=== PATIENT | female | born 1935 | race Caucasian/White ===

== ENCOUNTER 2021-08-11 11:11 | Inpatient (IN) | payer MEDICARE, BC ==
[~2021-08-11] VITALS: Ht 149.9 cm; Wt 81.0 kg
[2021-08-11 11:37] LABS: BASOPHILS ABSOLUTE AUTO 0.06 K/mm3 (0.00-0.23); BASOPHILS PERCENT AUTO 0 % (0-2); EOSINOPHILS PERCENT AUTO 9 % (0-6); Hematocrit 34.6 % (33.0-51.0); Hemoglobin 10.7 g/dL (11.5-16.0); IMMATURE GRAN ABSOLUTE AUTO 0.07 K/mm3 (0.00-0.10); IMMATURE GRAN PERCENT AUTO 0 % (0-1); LYMPHOCYTES ABSOLUTE AUTO 2.87 K/mm3 (0.84-5.20); LYMPHOCYTES PERCENT AUTO 18 % (21-46); MONOCYTES ABSOLUTE AUTO 1.13 K/mm3 (0.16-1.47); MONOCYTES PERCENT AUTO 7 % (4-13); Mean Corpuscular HGB 27.4 pg (26.0-34.0); Mean Corpuscular HGB Conc 30.9 g/dL (31.5-36.5); Mean Corpuscular Volume 89 fL (80-100); Mean Platelet Volume 9.8 fL (9.1-12.4); NEUTROPHILS ABSOLUTE AUTO 10.69 K/mm3 (1.96-9.15); NEUTROPHILS PERCENT AUTO 66 % (41-73); Platelet Count 256 K/mm3 (150-400); RDW Coefficient Variation 17.1 % (11.7-14.2); RDW Standard Deviation 55.3 fL (35.1-46.3); White Blood Cell Count 16.22 K/mm3 (4.00-11.30)
[2021-08-11 11:57] LABS: Albumin, Blood 2.8 g/dL (3.4-5.0); Albumin/Globulin Ratio 0.7 (0.8-1.8); Bilirubin, Total 0.5 mg/dL (0.1-1.0); Bun/Creatinine Ratio 15.3 (12.0-20.0); Calcium, Blood 8.7 mg/dL (8.5-10.1); Creatinine, Blood 1.18 mg/dL (0.40-1.00); Globulin, Blood 3.9 g/dL (2.2-4.0); Potassium, Blood 3.9 mmol/L (3.5-5.5); Total Protein, Blood 6.7 g/dL (6.4-8.2)
[2021-08-11 12:30] LABS: Influenza A, PCR NEGATIVE (NEGATIVE); Influenza B, PCR NEGATIVE (NEGATIVE); Resp Syncytial Virus, PCR NEGATIVE (NEGATIVE); SARS-Cov-2 (COVID-19) PCR, MMC NEGATIVE (NEGATIVE)
[2021-08-11] MEDS ORDERED: FURO20 PO (18:23)
[2021-08-11] MEDS ORDERED: BENZ100A PO (18:24)
[2021-08-11] MEDS ORDERED: BUME1 PO (18:24)
--- NOTE | 2021-08-12 03:42 | NUR ---
CLOUD SUBJECT MATTER EXPERT SUMMARY HAS BEEN RESTING QUIETLY WITH OCCASIONAL INTERRUPTIONS. AWAKE AT TIMES WITH C/O HEADACHE. RECEIVED TYLENOL, MED EFFECTIVE. O2 PER NC AT 1L/MIN. SATS AND VITALS STABLE. NO C/O NAUSEA. CALL LIGHT IN REACH
[2021-08-12 05:12] LABS: Hematocrit 33.7 % (33.0-51.0); Hemoglobin 10.7 g/dL (11.5-16.0); Mean Corpuscular HGB 27.7 pg (26.0-34.0); Mean Corpuscular HGB Conc 31.8 g/dL (31.5-36.5); Mean Corpuscular Volume 87 fL (80-100); Mean Platelet Volume 10.2 fL (9.1-12.4); Platelet Count 242 K/mm3 (150-400); RDW Coefficient Variation 16.9 % (11.7-14.2); RDW Standard Deviation 53.7 fL (35.1-46.3); Red Blood Cell Count 3.86 M/mm3 (3.80-5.20); White Blood Cell Count 12.19 K/mm3 (4.00-11.30)
[2021-08-12 05:42] LABS: Bun/Creatinine Ratio 16.4 (12.0-20.0); Calcium, Blood 8.3 mg/dL (8.5-10.1); Creatinine, Blood 1.22 mg/dL (0.40-1.00); Potassium, Blood 3.8 mmol/L (3.5-5.5)
[2021-08-12] MEDS ORDERED: FERREX 150150 M1 PO (09:43)
[2021-08-12] MEDS ORDERED: VITAMIN D33000 UNIT PO (09:43)
[2021-08-12] MEDS ORDERED: Premarin0.3 MG PO (09:44)
[2021-08-12] MEDS ORDERED: AMLO5 PO (09:44)
[2021-08-12] MEDS ORDERED: Ventolin5 MG/1 ML INH (09:48)
[2021-08-12] MEDS ORDERED: ALBU90OI INH (09:49)
--- NOTE | 2021-08-12 14:57 | NUR ---
Spiritual care visit conducted. Patient is lying in bed and alert. Patient tells me about her medical history and then talks at length about the recent of her son (2yrs ago), her dtr (6 yrs ago) and then her spouse (14 yrs ago). She also shares her concerns about going home without oxygen support. While we are talking her other dtr arrives in the and explains that pt may d/c to her home today. I normalize pt's experience, and therapeutic listening, grief support and prayer. Pt responds well and shows signs of increased peace.
[2021-08-12] MEDS ORDERED: CLOP75 PO (15:15)
[2021-08-12] MEDS ORDERED: AUSTEDO12 MG PO (15:16)
[2021-08-12] MEDS ORDERED: GABA300 PO ×2 (15:18→15:19)
[2021-08-12] MEDS ORDERED: MONT10T PO (15:21)
[2021-08-12] MEDS ORDERED: EUTHYROX50 MCG PO (15:21)
[2021-08-12] MEDS ORDERED: MYRBETRIQ50 MG PO (15:22)
[2021-08-12] MEDS ORDERED: PANT40 PO (15:22)
[2021-08-12] MEDS ORDERED: POTA10T PO (15:23)
[2021-08-12] MEDS ORDERED: PRED1 PO (15:25)
[2021-08-12] MEDS ORDERED: ROSU10TA PO (15:26)
[2021-08-12] MEDS ORDERED: AZIT250 PO (17:16)
[2021-08-12] MEDS ORDERED: LACT PO (17:16)
[2021-08-12] MEDS ORDERED: CEPH500 PO (17:17)
--- NOTE | 2021-08-12 17:54 | NUR ---
11:15 ASSUMED CARE OF PT, RESTING QUIETLY IN BED, WATCHING TV. PT WANTING TO GO HOME. HOME MED LIST TO BE OBTAINED FROM PCP IN [place] [facility] AND HOME O2 EVAL TO BE DONE. JORDIN CALLED FOR HOME MED LIST. UPDATED IN PT'S CHART WHEN OBTAINED. HOME O2 EVAL DONE WITH PT AMBULATING IN [place] WITH RT. PT NOT NEEDING TO GO HOME WITH O2. DR RUGGIERO UPDATED ON PT'S MED LIST AND EVAL. DR RUGGIERO WANTING PT TO STAY ONE MORE DAY, BUT PT INSISTING ON GOING HOME TODAY. PT AMBULATED IN [place] AGAIN, DOING BETTER THE 2ND TIME, BUT STILL BECOMING SOB WHEN BACK TO AND TRYING TO TALK TOO MUCH. DR RUGGIERO TO TO EVALUATE PT AND TRIED TO ENCOURAGE PT TO STAY UNTIL TOMORROW. PT BECOMING UPSET AND TEARFUL. D/C ORDERS PLACED. [facility]. PT'S DAUGHTER HERE TO TAKE PT HOME AND WILL BE STAYING WITH PT WELL. PT DOES HAVE GOOD FAMILY SUPPORT AND LIVES WITH GRANDAUGHTER TOO. PT DENIED FURTHER NEEDS. ASSISTED OUT TO DAUGHTERS CAR VIA W/C., BELONGINGS WENT WITH PT AND DAUGHTER.
== END 2021-08-12 17:48 | disposition home or self-care (01) | DRG 871 ==
LOC: ER 11:11 → MEDS 13:46
PROVIDERS: Emergency Medicine; ADMIT Internal Medicine
DX: A41.9 Sepsis, unspecified organism (principal); J96.21 Acute and chronic respiratory failure with hypoxia; J18.9 Pneumonia, unspecified organism; J44.1 Chronic obstructive pulmonary disease with (acute) exacerbation; J44.0 Chronic obstructive pulmonary disease with (acute) lower respiratory infection; Z66 Do not resuscitate; Z20.822 Contact with and (suspected) exposure to COVID-19; G89.29 Other chronic pain; M54.9 Dorsalgia, unspecified; D72.829 Elevated white blood cell count, unspecified; N18.30 Chronic kidney disease, stage 3 unspecified; I50.9 Heart failure, unspecified; T38.0X5A Adverse effect of glucocorticoids and synthetic analogues, initial encounter; Z90.49 Acquired absence of other specified parts of digestive tract; Z90.710 Acquired absence of both cervix and uterus; Z98.890 Other specified postprocedural states; Z99.81 Dependence on supplemental oxygen; Z87.891 Personal history of nicotine dependence; Z88.6 Allergy status to analgesic agent; Z88.5 Allergy status to narcotic agent; Z91.09 Other allergy status, other than to drugs and biological substances; Z79.899 Other long term (current) drug therapy; W18.30XA Fall on same level, unspecified, initial encounter
CPT/HCPCS: 0241U; 36415; 70450; 71045; 72125; 80048; 80053; 83605; 83880; 84145; 84484; 85025; 85027; 87040; 93005; 93010; 93306; 94640; 94664; 94760; 94761; 96365; 96375; 99285-25; A9270; J0456; J0696; J1940; J7060

== ENCOUNTER → 2023-02-18 | Outpatient (CLI) | payer MEDICARE, BC ==
[~2023-02-18] MED LIST: ALBU90OI INH; AMLO5 PO; AMLODIPINE BES2.5 MG PO; AUSTEDO12 MG PO; AZIT250 PO; BENZ100A PO; BUME1 PO; CEPH500 PO; CLIMARA1 EACH TOP; CLOP75 PO; ELIQUIS2.5 M1 PO; EUTHYROX50 MCG PO; FERREX 150150 M1 PO; FURO20 PO; GABA300 PO; KLOR-CON 1010 ME9 PO; LACT PO; MONT10T PO; MYRBETRIQ50 MG PO; NEURONTIN300 MG PO; PANT40 PO; PANTOPRAZOLE SO40 M2 PO; PLAVIX75 MG PO; POTA10T PO; PRED1 PO; Prednisone10 MG PO; Premarin0.3 MG PO; ROPINIROLE HCL2 M1 PO; ROSU10TA; ROSU10TA PO; SYNTHROID50 MC1 PO; TRELEGY ELLIPT1 EAC1 INH; VITAMIN D33000 UNIT PO; Ventolin/Prove6.7 GM INH; Ventolin5 MG/1 ML INH
[2023-02-18 18:14] LABS: Albumin, Blood 3.1 g/dL (3.4-5.0); Albumin/Globulin Ratio 0.9 (0.8-1.8); Bilirubin, Total 0.3 mg/dL (0.1-1.0); Bun/Creatinine Ratio 20.3 (12.0-20.0); Calcium, Blood 8.9 mg/dL (8.5-10.1); Creatinine, Blood 1.48 mg/dL (0.40-1.00); Globulin, Blood 3.4 g/dL (2.2-4.0); Potassium, Blood 4.6 mmol/L (3.5-5.5); Total Protein, Blood 6.5 g/dL (6.4-8.2)
== END ==
LOC: LAB SHORT 16:50 → LAB 16:50
PROVIDERS: Family Medicine
DX: I50.812 Chronic right heart failure (principal)
CPT/HCPCS: 80053; 83880

== ENCOUNTER 2023-02-21 17:34 | Inpatient (IN) | payer MEDICARE, BC ==
[~2023-02-21] VITALS: Ht 162.6 cm; Wt 54.8 kg
[~2023-02-21 17:34] MED LIST changes: -AMLODIPINE BES2.5 MG PO; -CLIMARA1 EACH TOP; -ELIQUIS2.5 M1 PO; -KLOR-CON 1010 ME9 PO; -NEURONTIN300 MG PO; -PANTOPRAZOLE SO40 M2 PO; -PLAVIX75 MG PO; -Prednisone10 MG PO; -ROPINIROLE HCL2 M1 PO; -ROSU10TA; -SYNTHROID50 MC1 PO; -TRELEGY ELLIPT1 EAC1 INH; -Ventolin/Prove6.7 GM INH
[2023-02-21 18:51] LABS: Albumin, Blood 3.2 g/dL (3.4-5.0); Albumin/Globulin Ratio 0.9 (0.8-1.8); Bilirubin, Total 0.5 mg/dL (0.1-1.0); Bun/Creatinine Ratio 20.4 (12.0-20.0); Calcium, Blood 8.8 mg/dL (8.5-10.1); Creatinine, Blood 1.47 mg/dL (0.40-1.00); Globulin, Blood 3.5 g/dL (2.2-4.0); Potassium, Blood 4.5 mmol/L (3.5-5.5); Total Protein, Blood 6.7 g/dL (6.4-8.2)
[2023-02-21 19:02] LABS: BASOPHILS ABSOLUTE AUTO 0.04 K/mm3 (0.00-0.23); BASOPHILS PERCENT AUTO 0 % (0-2); EOSINOPHILS PERCENT AUTO 0 % (0-6); Hematocrit 40.8 % (33.0-51.0); IMMATURE GRAN ABSOLUTE AUTO 0.15 K/mm3 (0.00-0.10); IMMATURE GRAN PERCENT AUTO 1 % (0-1); LYMPHOCYTES ABSOLUTE AUTO 1.21 K/mm3 (0.84-5.20); LYMPHOCYTES PERCENT AUTO 9 % (21-46); MONOCYTES ABSOLUTE AUTO 0.35 K/mm3 (0.16-1.47); MONOCYTES PERCENT AUTO 2 % (4-13); Mean Corpuscular HGB Conc 31.9 g/dL (31.5-36.5); Mean Corpuscular Volume 97 fL (80-100); Mean Platelet Volume 9.8 fL (9.1-12.4); NEUTROPHILS ABSOLUTE AUTO 12.54 K/mm3 (1.96-9.15); NEUTROPHILS PERCENT AUTO 88 % (41-73); NRBC ABSOLUTE 0.02 K/mm3 (0.00-0.02); NRBC Auto 0.1 /100 WBC (0.0-0.2); Platelet Count 211 K/mm3 (150-400); RDW Coefficient Variation 15.3 % (11.7-14.2); RDW Standard Deviation 54.5 fL (35.1-46.3); White Blood Cell Count 14.29 K/mm3 (4.00-11.30)
[2023-02-21 19:04] LABS: Influenza A, PCR NEGATIVE (NEGATIVE); Influenza B, PCR NEGATIVE (NEGATIVE); Resp Syncytial Virus, PCR NEGATIVE (NEGATIVE); SARS-Cov-2 (COVID-19) PCR, MMC NEGATIVE (NEGATIVE)
[2023-02-21] MEDS ORDERED: AMLODIPINE BES2.5 MG PO (19:20)
[2023-02-21] MEDS ORDERED: Prednisone10 MG PO (19:21)
[2023-02-21] MEDS ORDERED: ROPINIROLE HCL2 M1 PO (19:21)
[2023-02-21] MEDS ORDERED: ELIQUIS2.5 M1 PO (19:22)
[2023-02-21] MEDS ORDERED: MONT10T PO (22:12)
[2023-02-22 05:30] LABS: Bun/Creatinine Ratio 19.4 (12.0-20.0); Calcium, Blood 7.9 mg/dL (8.5-10.1); Creatinine, Blood 1.65 mg/dL (0.40-1.00); Potassium, Blood 4.2 mmol/L (3.5-5.5)
[2023-02-22 09:07] VITALS: BP 146/78
[2023-02-22] MEDS ORDERED: FURO20 PO (09:32)
[2023-02-22] MEDS ORDERED: SYNTHROID50 MC1 PO (09:32)
[2023-02-22] MEDS ORDERED: TRELEGY ELLIPT1 EAC1 INH (09:32)
[2023-02-22] MEDS ORDERED: Ventolin/Prove6.7 GM INH (09:33)
[2023-02-22] MEDS ORDERED: NEURONTIN300 MG PO (09:33)
[2023-02-22] MEDS ORDERED: PANTOPRAZOLE SO40 M2 PO (09:33)
[2023-02-22] MEDS ORDERED: KLOR-CON 1010 ME9 PO (09:34)
[2023-02-22] MEDS ORDERED: PLAVIX75 MG PO (09:34)
[2023-02-22] MEDS ORDERED: CLIMARA1 EACH TOP (09:34)
[2023-02-22] MEDS ORDERED: MONT10T PO (09:34)
[2023-02-22 12:13] VITALS: BP 154/83
[2023-02-22 13:07] LABS: Base Excess Venous 4.1 mmol/L; Bicarbonate Venous 27.7 mmol/L (24.0-30.0); PCO2 Venous 41.4 mmHg (38-42); pH Blood Venous 7.44 (7.34-7.37)
[2023-02-22 16:21] VITALS: BP 146/71
--- NOTE | 2023-02-22 18:31 | NUR ---
SHIFT SUMMARY; ADMIT FROM ED, SLID FROM GURNEY TO BED. BED BATH ON ARRIVAL. BREATHING APPEARS LABORED, SPEAKING 3-4 WORD SENTENCES. 2L 02 VIA NC, SATS 98-100%. MOVES SELF ON GURNEY NEEDED, A/A/OX4. [address] SALAZAR AFTER ASSESMENT VBG AND 02 SATS NORMAL. CONTINUES TO APPEAR TO BE WORKING HARD TO BREATH WITH HIGH RR. BIPAP ORDERED BY DR. SALAZAR. COMFORT AND WORK OF BREATHING IMPROVED WITH BIPAP/CPAP. L/S TIGHT T/O, VSS. DIFFICULTY WITH SWALLOWING WATER AND FOOD. PT STATES SHE ALWAYS HAS SWALLOWING ISSUES AND IS BEING SEEN OUT PATIENT FOR IT. STATES POSSIBLE HIATAL HERNIA. STRONG COUGH AND GAGGING AFTER THIN LIQUIDS. SWALLOW EVAL ORDERED, BEDSIDE SWALLOW COMPLETE. APPEARS TO TOLERATE THICK CONSISTANCY SUCH APPLESAUCE AND THICKENED JUICE WITHOUT DIFFICULTY. MASH POTATOES BROUGHT IN BY FAMILY AND PT TOLERATED WELL. VSS, PURWICK IN PLACE, WILL CONTINUE TO MONITOR AND TREAT UNTIL CHANGE OF SHIFT.
[2023-02-22 19:54] VITALS: BP 131/70
[2023-02-22 23:34] VITALS: BP 134/53
[2023-02-23 04:08] VITALS: BP 114/64
--- NOTE | 2023-02-23 06:51 | NUR ---
SHIFT SUMMARY A/Ox4 AND COOPERATIVE WITH CARE. ANSWERS QUESTIONS APPROPRIALTEY AND ABLE TO MAKE HER NEEDS KNOWN. CAN BE ANXIOUS AT TIMES,BUT ANXIETY WELL CONTROLLED PER EMAR. NO ACUTE EVENTS OVERNIGHT. CARDIAC, REMAINS IN AFIB RHYTHM 80-100's WITH INTERMITTENT PVC's NOTED. NO REPORTS OF CP OR PRESSURE T/O THE NIGHT. SBP HAS BEEN STABLE RANGING 110-130's. RESPIRATORY, MAINTAINS SPO2 >92% ON RA WITH ONLY INTERMITTENT EPISODES OF SOB. CONTINUES TO TALK IN CHOPPY SENTENCES WITH INCREASED WORK OF BREATHING NOTED WITH MINIMAL EXERTION. WEARS BiPAP 10/5 21% FiO2 WHEN SLEEPING. GI/FU, PURWICK IN PLACE DRAINING YELLOW URINE TO SUCTION. NO BM THIS SHIFT. SWALLOWS PILLS WHOLE IN APPLESAUCE WELL. TOLERATES NECTAR THICK LIQUIDS. ASSESSED PT FOR RISKS OF ANY IGNITION SOURCES WELL BEHAVIORS FOR INCREASED RISKS OF FIRE DANGER. PT EDUCATED ON COMMON SOURCES OF IGNITION WELL NEED TO KEEP A SAFE ENVIRONMENT. PT VOICED UNDERSTANDING. NO NEW ORDERS AT THIS TIME, WILL REPORT TO ONCOMING RN. GILDARDO FLORES OF THIS NOTE
[2023-02-23 07:20] LABS: BASOPHILS ABSOLUTE AUTO 0.01 K/mm3 (0.00-0.23); BASOPHILS PERCENT AUTO 0 % (0-2); EOSINOPHILS ABSOLUTE AUTO 0.03 K/mm3 (0.00-0.68); EOSINOPHILS PERCENT AUTO 0 % (0-6); Hemoglobin 11.8 g/dL (11.5-16.0); IMMATURE GRAN PERCENT AUTO 1 % (0-1); LYMPHOCYTES ABSOLUTE AUTO 0.96 K/mm3 (0.84-5.20); LYMPHOCYTES PERCENT AUTO 7 % (21-46); MONOCYTES PERCENT AUTO 4 % (4-13); Mean Corpuscular HGB 31.1 pg (26.0-34.0); Mean Corpuscular HGB Conc 32.8 g/dL (31.5-36.5); Mean Corpuscular Volume 95 fL (80-100); NEUTROPHILS PERCENT AUTO 89 % (41-73); Platelet Count 181 K/mm3 (150-400); RDW Coefficient Variation 15.4 % (11.7-14.2); RDW Standard Deviation 53.3 fL (35.1-46.3)
[2023-02-23 07:39] LABS: Albumin, Blood 2.9 g/dL (3.4-5.0); Albumin/Globulin Ratio 0.9 (0.8-1.8); Bilirubin, Total 0.4 mg/dL (0.1-1.0); Bun/Creatinine Ratio 20.9 (12.0-20.0); Calcium, Blood 8.1 mg/dL (8.5-10.1); Creatinine, Blood 1.48 mg/dL (0.40-1.00); Globulin, Blood 3.1 g/dL (2.2-4.0)
[2023-02-23 07:55] VITALS: BP 133/71
--- NOTE | 2023-02-23 08:02 | NUR ---
SPO2 91-97% ON room air, but with tachypnea, dyspnea at rest, and inability to complete full sentences without stopping to take breaths. Oxygen 2 l/min placed to decrease work of breathing; she is working with the speech therapist at this time. Pt states that she was prescribed 2 l/min oxygen at all times last Tuesday as an outpatient.
--- NOTE | 2023-02-23 08:04 | NUR ---
15 beat run VTACH ; pt was not symptomatic. Will ask for magnesium level when doctor rounds.
--- NOTE | 2023-02-23 09:29 | NUR ---
PT's work of breathing is visibly less labored at rest at this time. Spo2 98% on room air at this time. Pt states that her "oxygen level was 100, the doctor said, and so he turned the oxygen off. He just left the room." Dr. Ayala is in the hallway at this time.
--- NOTE | 2023-02-23 10:00 | NUR ---
The pt was not on oxygen at rest, as it had been turned it off when doctor was rounding as pt was 100% on 2 l/min at rest, 98% on room air at rest. the pt was helped up to BSC by the CNAs and desaturated to 79% during her BSC activity. Recovered within 2 minutes to 88% on 2 l/min of oxygen. She was later helped back to the bed by the CNAs.
--- NOTE | 2023-02-23 11:05 | NUR ---
Telephone report given to PERI Arechiga at this time. Pt will be transferrring to 326 soon.
[2023-02-23] MEDS ORDERED: ROSU10TA (14:16)
[2023-02-23 15:03] VITALS: BP 135/60
--- NOTE | 2023-02-23 16:52 | NUR ---
SHIFT SUMMARY PATIENT TRANSFERED UP FROM PCU MID DAY TODAY. PATIENT ALERT AND INTERACTIVE. PATIENT NOTED TO HAVE RESTLESS MOVEMENTS OF ALL EXTREMETIES AND NOTED MOVEMENTS OF MOUTH. PATIENT NOTED TO HAVE WHEEZES THROUGHOUT WITH COARSE BREATH SOUNDS. PATIENT CURRENTLY ON OXYGEN AND ATTEMPTED TO WEAR A BIPAP LAST NIGHT. PROVIDED EDUCATION TO PATIENT ON WAYS TO HELP TOLERATE BIPAP. FAMILY SUPPORTIVE.
[2023-02-23 19:17] VITALS: BP 110/71
[2023-02-24 03:20] VITALS: BP 141/78
[2023-02-24 04:22] VITALS: BP 132/70
--- NOTE | 2023-02-24 04:32 | NUR ---
SHIFT SUMMARY MARYELLEN WAS ALERT AND FULLY ORIENTED DURING ASSESSMENT WITH FAMILY PRESENT AT BEDSIDE. PT AND PT'S FAMILY REPORT THAT PT'S TREMORS WERE SEVERE ENOUGH THE PREVIOUS NIGHT THAT SHE HAD BITTEN HER TONGUE AND CHEEKS AND WAS BLEEDING. HOSPITALIST NOTIFIED, [place] ORDERED AND ADMINISTERED WITH EVENING MEDS. PT WOKE UP DISORIENTED AND ANXIOUS AROUND 0300 AND CALLED HER DAUGHTER. PT WAS REORIENTED, VITALS STABLE, PT RETURNED TO CALM STATE. SHE IS CURRENTLY RESTING IN BED AT A LOW POSITION WITH THE CALL LIGHT IN REACH. NO ACUTE EVENTS, PT MAINTAINING O2 SATS IN THE 90'S ON 2L VIA NC, PT NOT TOLERATING CPAP, REPORTS THAT SHE HAD BEEN HAVING NIGHTMARES ABOUT WEARING IT BEFORE WAKING UP DISORIENTED AND ANXIOUS.
[2023-02-24 07:43] VITALS: BP 132/69
[2023-02-24 09:48] LABS: BASOPHILS ABSOLUTE AUTO 0.02 K/mm3 (0.00-0.23); BASOPHILS PERCENT AUTO 0 % (0-2); EOSINOPHILS ABSOLUTE AUTO 0.01 K/mm3 (0.00-0.68); EOSINOPHILS PERCENT AUTO 0 % (0-6); Hematocrit 36.2 % (33.0-51.0); Hemoglobin 11.7 g/dL (11.5-16.0); IMMATURE GRAN ABSOLUTE AUTO 0.12 K/mm3 (0.00-0.10); IMMATURE GRAN PERCENT AUTO 1 % (0-1); LYMPHOCYTES ABSOLUTE AUTO 0.73 K/mm3 (0.84-5.20); LYMPHOCYTES PERCENT AUTO 6 % (21-46); MONOCYTES ABSOLUTE AUTO 0.37 K/mm3 (0.16-1.47); MONOCYTES PERCENT AUTO 3 % (4-13); Mean Corpuscular HGB Conc 32.3 g/dL (31.5-36.5); Mean Corpuscular Volume 96 fL (80-100); Mean Platelet Volume 10.5 fL (9.1-12.4); NEUTROPHILS ABSOLUTE AUTO 10.23 K/mm3 (1.96-9.15); NEUTROPHILS PERCENT AUTO 89 % (41-73); NRBC ABSOLUTE 0.02 K/mm3 (0.00-0.02); NRBC Auto 0.2 /100 WBC (0.0-0.2); Platelet Count 164 K/mm3 (150-400); RDW Coefficient Variation 15.5 % (11.7-14.2); RDW Standard Deviation 54.5 fL (35.1-46.3); Red Blood Cell Count 3.77 M/mm3 (3.80-5.20); White Blood Cell Count 11.48 K/mm3 (4.00-11.30)
[2023-02-24 10:11] LABS: Calcium, Blood 8.2 mg/dL (8.5-10.1); Creatinine, Blood 1.36 mg/dL (0.40-1.00); Potassium, Blood 4.1 mmol/L (3.5-5.5)
[2023-02-24 15:00] VITALS: BP 122/58
--- NOTE | 2023-02-24 16:20 | NUR ---
U*sarah receiving a referral for spiritual care, I visited the patient. Her granddtr, Gretta, is bedside. Patient tells me about her life, her family and her medical issues. She shares about being at the end of life and how she feels ready with God to go to him. She talks about the amazing support of her family and the closeness of their family unit. I provide therapeutic listening and prayer. Patient responded well and stated that it was a meaningful visit. I will continue to remain available to patient and family.
--- NOTE | 2023-02-24 17:55 | NUR ---
SHIFT SUMMARY PT AxOx4. PLEASANT AND COOPERATIVE WITH CARE. PT REQUIRES 1 ASSIST WITH FWW AND GB FOR TRANSFERS, UP IN CHAIR FOR MEALS. GENERAL WEAKNESS NOTED. PT STILL HAVING DYSPNEA W/EXERTION. PT USING 2L O2 VIA NC, O2 SATS >96%. PT RECEIVED IV STEROIDS, IV ABX AND BREATHING TREATMENTS FROM RESP THERAPY. PT HAD FAMILY VISITORS IN THE ROOM TODAY, UPDATED ON PLAN OF CARE. PT REPORTS FEELING A LITTLE BIT BETTER TODAY. LS STILL WHEEZY T/O. TELE WAS AFIB AT 87. PT DENIED PAIN THIS SHIFT. PT IS CURRENTLY SITTING UP IN CHAIR EATING DINNER. DENIES ANY NEEDS AT THIS TIME.
[2023-02-24 19:30] VITALS: BP 125/63
[2023-02-25 04:30] VITALS: BP 136/72
--- NOTE | 2023-02-25 04:36 | NUR ---
SHIFT SUMMARY MARYELLEN WAS ALERT AND FULLY ORIENTED AND WITH FAMILY AT THE START OF SHIFT. NO ACUTE EVENTS TONIGHT OR NOTABLE CHANGES IN CONDITION. PT IS MAINTAINING O2 SATS IN THE 90'S. PT COMPLAINS OF SORE THROAT, VISIBLE WHITE COLORED LESIONS IN THE BACK OF THE MOUTH/ THROAT. HOSPITALIST WAS CONTACTED AND NOTIFIED, ORDERS FOR CEPACOL THROAT LOZENGES PLACED/ ADMINISTERED. PT CURRENTLY RESTING IN BED AT A LOW POSITION WITH THE CALL LIGHT IN PLACE. NO ACUTE EVENTS THIS SHIFT.
[2023-02-25 05:37] LABS: BASOPHILS ABSOLUTE AUTO 0.02 K/mm3 (0.00-0.23); BASOPHILS PERCENT AUTO 0 % (0-2); EOSINOPHILS PERCENT AUTO 0 % (0-6); Hematocrit 35.2 % (33.0-51.0); Hemoglobin 11.2 g/dL (11.5-16.0); IMMATURE GRAN ABSOLUTE AUTO 0.15 K/mm3 (0.00-0.10); IMMATURE GRAN PERCENT AUTO 1 % (0-1); LYMPHOCYTES ABSOLUTE AUTO 0.26 K/mm3 (0.84-5.20); LYMPHOCYTES PERCENT AUTO 2 % (21-46); MONOCYTES ABSOLUTE AUTO 0.38 K/mm3 (0.16-1.47); MONOCYTES PERCENT AUTO 3 % (4-13); Mean Corpuscular HGB 30.6 pg (26.0-34.0); Mean Corpuscular HGB Conc 31.8 g/dL (31.5-36.5); Mean Corpuscular Volume 96 fL (80-100); NEUTROPHILS ABSOLUTE AUTO 10.99 K/mm3 (1.96-9.15); NEUTROPHILS PERCENT AUTO 93 % (41-73); NRBC ABSOLUTE 0.03 K/mm3 (0.00-0.02); NRBC Auto 0.3 /100 WBC (0.0-0.2); Platelet Count 168 K/mm3 (150-400); RDW Coefficient Variation 15.1 % (11.7-14.2); RDW Standard Deviation 53.1 fL (35.1-46.3); Red Blood Cell Count 3.66 M/mm3 (3.80-5.20)
[2023-02-25 06:21] LABS: Albumin, Blood 2.9 g/dL (3.4-5.0); Albumin/Globulin Ratio 0.9 (0.8-1.8); Bilirubin, Total 0.3 mg/dL (0.1-1.0); Bun/Creatinine Ratio 20.9 (12.0-20.0); Calcium, Blood 8.1 mg/dL (8.5-10.1); Creatinine, Blood 1.63 mg/dL (0.40-1.00); Globulin, Blood 3.1 g/dL (2.2-4.0); Potassium, Blood 5.1 mmol/L (3.5-5.5)
[2023-02-25 06:44] LABS: BASOPHILS PERCENT MAN 0 % (0-2); EOSINOPHILS PERCENT MAN 0 % (0-6); LYMPHOCYTES ABSOLUTE MAN 0.47 K/mm3 (0.84-5.20); LYMPHOCYTES PERCENT MAN 4 % (21-46); MONOCYTES ABSOLUTE MAN 0.23 K/mm3 (0.16-1.47); MONOCYTES PERCENT MAN 2 % (4-13); NEUTROPHILS ABSOLUTE MAN 11.09 K/mm3 (1.96-9.15); SEG NEUTROPHILS PERCENT MAN 94 % (41-73); TOTAL CELLS COUNTED 100
[2023-02-25 07:25] VITALS: BP 143/66
[2023-02-25 14:55] VITALS: BP 125/60
--- NOTE | 2023-02-25 18:43 | NUR ---
SHIFT SUMMARY A&O X 4, VSS. VOICE RASPY. PT TENDS TO GAG AFTER EATING. PT HAD RESTING PORTION OF STRESS TEST TODAY. IS TO BE NPO AFTER MN EXCEPT FOR WATER & NO CAFFEINE AFTER 1900. PT IS AWARE AND AGREEABLE. IS PLEASANT & COOPERATIVE WITH ALL CARE. NO ACUTE CHANGES THIS SHIFT. PT PARTICIPATED WITH PHYS THERAPY TODAY AND SAT UP IN CHAIR FOR 2+ HRS. DENIED CP & SOB THIS SHIFT. PUREWICK IN PLACE AND FUNC WELL. BED IN LOW POSITION AND CALL LIGHT WITHIN REACH.
[2023-02-25 19:35] VITALS: BP 129/69
[2023-02-26 04:30] VITALS: BP 126/78
[2023-02-26 05:53] LABS: BASOPHILS ABSOLUTE AUTO 0.02 K/mm3 (0.00-0.23); BASOPHILS PERCENT AUTO 0 % (0-2); EOSINOPHILS PERCENT AUTO 0 % (0-6); Hematocrit 35.1 % (33.0-51.0); Hemoglobin 11.2 g/dL (11.5-16.0); IMMATURE GRAN ABSOLUTE AUTO 0.18 K/mm3 (0.00-0.10); IMMATURE GRAN PERCENT AUTO 2 % (0-1); LYMPHOCYTES ABSOLUTE AUTO 0.65 K/mm3 (0.84-5.20); LYMPHOCYTES PERCENT AUTO 6 % (21-46); MONOCYTES ABSOLUTE AUTO 0.95 K/mm3 (0.16-1.47); MONOCYTES PERCENT AUTO 8 % (4-13); Mean Corpuscular HGB 30.8 pg (26.0-34.0); Mean Corpuscular HGB Conc 31.9 g/dL (31.5-36.5); Mean Corpuscular Volume 96 fL (80-100); Mean Platelet Volume 10.5 fL (9.1-12.4); NEUTROPHILS ABSOLUTE AUTO 9.73 K/mm3 (1.96-9.15); NEUTROPHILS PERCENT AUTO 84 % (41-73); NRBC ABSOLUTE 0.02 K/mm3 (0.00-0.02); NRBC Auto 0.2 /100 WBC (0.0-0.2); Platelet Count 165 K/mm3 (150-400); RDW Standard Deviation 53.5 fL (35.1-46.3); Red Blood Cell Count 3.64 M/mm3 (3.80-5.20); White Blood Cell Count 11.53 K/mm3 (4.00-11.30)
[2023-02-26 06:28] LABS: Bun/Creatinine Ratio 22.2 (12.0-20.0); Calcium, Blood 8.2 mg/dL (8.5-10.1); Creatinine, Blood 1.67 mg/dL (0.40-1.00); Potassium, Blood 5.3 mmol/L (3.5-5.5)
--- NOTE | 2023-02-26 07:21 | NUR ---
Shift Summary NPO since 0000 in anticipation for part 2 of stres test today. Pt had bouts of labored respiration over the night while asleep with some sternal retraction. She had wet lungs and struggles to cough up secretions. No c/o sore throat, pain or nausea this shift.
[2023-02-26 07:29] VITALS: BP 124/75
--- NOTE | 2023-02-26 16:38 | NUR ---
NOTE PT UP FOR THE AFTERNOON. ACTIVE BURPING, SPITTING UP AND REGURITATING FOOD. SPEACH THERAPY IN WITH PT THIS MORNING. PT UP FOR MEALS. APPLESUACE WITH PILLS. PT LUNGS CONTINUE TO COURSE AND WHEEZY. OXYGEN DEMAND STABLE. DENIED DISCOMFORT. CONTINUE POC.
[2023-02-26 16:50] VITALS: BP 140/70
[2023-02-26 21:07] VITALS: BP 146/68
[2023-02-27 03:08] VITALS: BP 141/67
--- NOTE | 2023-02-27 05:29 | NUR ---
SHIFT SUMMARY PT IS A&O3 MILD CONFUSOIN OVERNIGHT, UP WITH1-2 BSC, PURIWICK IN PLACE OVERNIGHT, 3L NC SATS IN LOW TO MID 90'S, NO COMPLAINTS OF PAIN THIS SHIFT OR ACUTE OVERNIGHT EVETNS CONTINUE POC
[2023-02-27 06:35] LABS: BASOPHILS ABSOLUTE AUTO 0.02 K/mm3 (0.00-0.23); BASOPHILS PERCENT AUTO 0 % (0-2); EOSINOPHILS PERCENT AUTO 0 % (0-6); Hematocrit 36.4 % (33.0-51.0); IMMATURE GRAN ABSOLUTE AUTO 0.22 K/mm3 (0.00-0.10); IMMATURE GRAN PERCENT AUTO 2 % (0-1); LYMPHOCYTES ABSOLUTE AUTO 0.46 K/mm3 (0.84-5.20); LYMPHOCYTES PERCENT AUTO 4 % (21-46); MONOCYTES ABSOLUTE AUTO 0.48 K/mm3 (0.16-1.47); MONOCYTES PERCENT AUTO 4 % (4-13); Mean Corpuscular HGB 30.8 pg (26.0-34.0); Mean Corpuscular Volume 94 fL (80-100); Mean Platelet Volume 11.4 fL (9.1-12.4); NEUTROPHILS ABSOLUTE AUTO 11.17 K/mm3 (1.96-9.15); NEUTROPHILS PERCENT AUTO 90 % (41-73); Platelet Count 143 K/mm3 (150-400); RDW Coefficient Variation 14.9 % (11.7-14.2); RDW Standard Deviation 50.9 fL (35.1-46.3); Red Blood Cell Count 3.89 M/mm3 (3.80-5.20); White Blood Cell Count 12.35 K/mm3 (4.00-11.30)
[2023-02-27 06:54] LABS: Bun/Creatinine Ratio 20.3 (12.0-20.0); Calcium, Blood 8.3 mg/dL (8.5-10.1); Creatinine, Blood 1.72 mg/dL (0.40-1.00)
[2023-02-27 07:33] VITALS: BP 130/79
[2023-02-27 16:00] LABS: Bun/Creatinine Ratio 26.2 (12.0-20.0); Calcium, Blood 8.5 mg/dL (8.5-10.1); Creatinine, Blood 1.68 mg/dL (0.40-1.00); Potassium, Blood 5.9 mmol/L (3.5-5.5)
[2023-02-27 16:34] LABS: Adenovirus Not Detected (NOT DETECT); Coronavirus 229E Not Detected (NOT DETECT); Coronavirus HKU1 Not Detected (NOT DETECT); Coronavirus NL63 Not Detected (NOT DETECT); Coronavirus OC43 Not Detected (NOT DETECT)
[2023-02-27 16:35] LABS: Bordetella pertussis Not Detected (NOT DETECT); Chlamydophila pneumoniae Not Detected (NOT DETECT); Human Metapneumovirus Not Detected (NOT DETECT); Human Rhinovirus/Enterovirus Not Detected (NOT DETECT); Influenza A/2009-H1 Not Detected (NOT DETECT); Influenza A/H1 Not Detected (NOT DETECT); Influenza A/H3 Not Detected (NOT DETECT); Influenza B Not Detected (NOT DETECT); Mycoplasma pneumoniae Not Detected (NOT DETECT); Parainfluenza Virus 1 Not Detected (NOT DETECT); Parainfluenza Virus 2 Not Detected (NOT DETECT); Parainfluenza Virus 3 Not Detected (NOT DETECT); Parainfluenza Virus 4 Not Detected (NOT DETECT); Respiratory Syncytial Virus Not Detected (NOT DETECT); SARS-Cov-2 (COVID-19), BioFire Not Detected (NOT DETECT)
[2023-02-27 16:53] VITALS: BP 141/63
--- NOTE | 2023-02-27 18:21 | NUR ---
SHIFT SUMMARY PT AxOx4. PLEASANT AND COOPERATIVE WITH CARE. PT WAS TRANSFERRED TO [facility] MID MORNING. SHE BECAME QUITE WEAK AND SOB AND DID HAVE DIFFICULTY GETTING BACK IN BED. RESP THERAPY IN FOR MORE FREQUENT BREATHING TX AND HER IV STEROIDS FREQUENCY WAS INCREASED THIS SHIFT. PT APPEARED TO RECOVER RESPIRATORY JOHNSON BY THIS AFTERNOON. SHE IS CURRENTLY USING 3L O2 VIA NC. PT HAD FAMILY IN THE ROOM T/O THIS SHIFT. SHE HAD A CRITICAL POTASSIUM OF 6.0 THIS AM. PROVIDER NOTIFIED. SHE ALSO HAD A CHEST XRAY AND A PULMONOLOGY CONSULT WAS PLACED TO BE CALLED ON TOMORROW WHEN HER PERSONAL ARCHITECTURE TECHNICIAN IS CLINICAL NURSE OCCUPATIONAL MEDICINE. PT ALSO HAD SOME DIFFICULTY SWALLOWING PILLS TODAY. SHE WAS ABLE TO TOLERATE SWALLOWING PILLS IN APPLESAUCE. XR- ESOPH IMAGING ORDERED FOR TOMORROW. PER TELE, PT'S HR WAS AFIB IN THE 80'S. PT DENIED PAIN THIS SHIFT. SHE WAS GIVEN A BED BATH AND IS CURRENTLY RESTING IN BED WITH CALL LIGHT IN REACH. PT DENIES ANY NEEDS AT THIS TIME.
[2023-02-27 20:38] VITALS: BP 142/63
[2023-02-28 04:19] VITALS: BP 143/72
--- NOTE | 2023-02-28 05:29 | NUR ---
SHIFT SUMMARY PT IS A&O3 CONFUSED AND LETHARGIC OVERNIGHT,3L NC AT BASELINE SATS MID TO UPPER 90'S, INCONTINENT PURIWICK IN PLACE, NO ACUTE OVERNIGHT EVENTS, SWALLOW STUDY AND PULMONOLOGY TO SEE PT TODAY CONTINUE POC
[2023-02-28 07:21] VITALS: BP 122/61
[2023-02-28 07:22] LABS: BASOPHILS ABSOLUTE AUTO 0.03 K/mm3 (0.00-0.23); BASOPHILS PERCENT AUTO 0 % (0-2); EOSINOPHILS PERCENT AUTO 0 % (0-6); Hematocrit 36.1 % (33.0-51.0); Hemoglobin 11.5 g/dL (11.5-16.0); IMMATURE GRAN ABSOLUTE AUTO 0.17 K/mm3 (0.00-0.10); IMMATURE GRAN PERCENT AUTO 2 % (0-1); LYMPHOCYTES ABSOLUTE AUTO 0.27 K/mm3 (0.84-5.20); LYMPHOCYTES PERCENT AUTO 2 % (21-46); MONOCYTES ABSOLUTE AUTO 0.43 K/mm3 (0.16-1.47); MONOCYTES PERCENT AUTO 4 % (4-13); Mean Corpuscular HGB 30.7 pg (26.0-34.0); Mean Corpuscular HGB Conc 31.9 g/dL (31.5-36.5); Mean Corpuscular Volume 96 fL (80-100); Mean Platelet Volume 10.4 fL (9.1-12.4); NEUTROPHILS ABSOLUTE AUTO 10.72 K/mm3 (1.96-9.15); NEUTROPHILS PERCENT AUTO 92 % (41-73); Platelet Count 175 K/mm3 (150-400); RDW Coefficient Variation 15.1 % (11.7-14.2); RDW Standard Deviation 53.6 fL (35.1-46.3); Red Blood Cell Count 3.75 M/mm3 (3.80-5.20); White Blood Cell Count 11.62 K/mm3 (4.00-11.30)
[2023-02-28 07:39] LABS: Albumin, Blood 2.8 g/dL (3.4-5.0); Albumin/Globulin Ratio 0.9 (0.8-1.8); Bilirubin, Total 0.4 mg/dL (0.1-1.0); Bun/Creatinine Ratio 25.7 (12.0-20.0); Calcium, Blood 8.6 mg/dL (8.5-10.1); Creatinine, Blood 1.87 mg/dL (0.40-1.00); Globulin, Blood 3.1 g/dL (2.2-4.0); Potassium, Blood 5.9 mmol/L (3.5-5.5); Total Protein, Blood 5.9 g/dL (6.4-8.2)
[2023-02-28 08:11] LABS: BASOPHILS PERCENT MAN 0 % (0-2); EOSINOPHILS PERCENT MAN 0 % (0-6); LYMPHOCYTES ABSOLUTE MAN 0.34 K/mm3 (0.84-5.20); LYMPHOCYTES PERCENT MAN 3 % (21-46); METAMYELOCYTE ABSOLUTE MAN 0.11 K/mm3 (0.00-0.00); METAMYELOCYTE PERCENT MAN 1 % (0-0); MONOCYTES PERCENT MAN 0 % (4-13); NEUTROPHILS ABSOLUTE MAN 11.15 K/mm3 (1.96-9.15); SEG NEUTROPHILS PERCENT MAN 96 % (41-73); TOTAL CELLS COUNTED 100
--- NOTE | 2023-02-28 16:46 | NUR ---
Plan is for patient to go home with granddaughter on hospice care. She has multiple family members present in her hospital room this afternoon, and they have all agreed they will assist in her care. Pt has been living with her daughter Shelli until now. Due to Shelli having to move from her home, they've decided pt will move in with Shelli's daughter instead. The patient is alert, pleasantly confused at times. Plan for hospice with [facility] as requested by pt and daughter.
--- NOTE | 2023-02-28 18:21 | NUR ---
SHIFT SUMMARY PATIENT STARTED DAY VERY DOWN, TIRED, WITH COURSE LUNG SOUNDS AND WET COUGH. PATIENT ULTIMATELY MADE THE DECISION WITH DR PERALES TO GO COMFORT CARE AND GO HOME ON HOSPICE. NO ACUTE EVENTS THIS SHIFT. PATIENT HAS BEEN SURROUNDED BY FAMILY ALL DAY. PLAN FOR DISCHARGE BACK TO HER ASSISTED LIVING FACILITY OR [facility]. PATIENT HAS HAD LESS CONGESTED COUGHING AND HAS HAD HIGHER SPIRITS SINCE FAMILY HAS BEEN HERE.
--- NOTE | 2023-03-01 04:43 | NUR ---
SHIFT SUMMARY: PT IS ADMITTED FOR SEPSIS AND IS A DNR. IS ON COMFORT CARE. IS ALERT AND ABLE TO MAKE MOST NEEDS KNOWN. FAMILY AT BEDSIDE THROUGHOUT SHIFT. THEY REPORT PERIODS OF INTERMITTENT CONFUSION WITH QUITE WORD SALAD TYPE SPEECH. ADLS HAVE HAVE 2P SHE IS ON BEDREST.
--- NOTE | 2023-03-01 17:13 | NUR ---
PATIENT A/OX3-4, MUMBLES AND HAS SOFT VOICE MAKING IT DIFFICULT TO UNDERSTAND AT TIMES. DENIES ANY PAIN OR DISCOMFORT, TURNING Q2 HOURS. BRANTLEY PLACED TODAY FOR COMFORT PER FAMILY REQUEST, PATIENT TOLERATED WELL. FAMILY AT BEDSIDE AND IS VERY SUPPORTIVE. SCOPALAMINE PATCH IN PLACE FOR SECRETIONS. NO NEW CONCERNS THIS SHIFT.
--- NOTE | 2023-03-02 04:53 | NUR ---
SHIFT SUMMARY BEDSIDE REPORT FROM JORGE RN- PT LAYING IN BED DURING REPORT- PT ALERT AND REPORTS NO PAIN, FAMILY AT BEDSIDE- SPOKE WITH PT AND FAMILY RE: INCREASED RESPIRATIONS= AIR HUNGER, EDUCATED BOTH PT AND FAMILY RE: MORPHINE CAN HELP WITH AIR HUNGER- PT REPORTED PT'S GRANDSON FLYING IN AND SHE WOULD LIKE TO BE AWAKE WHEN HE ARRIVES- PT TO LET ME KNOW IF SHE WOULD LIKE THE MORPHINE, FAMILY USED CALL LIGHT AT BEGINNING OF SHIFT AND REQUESTED TO GET MORPHINE- SPOKE WITH BOTH FAMILY AND PT ABOUT HOLDING THE KLONOPIN D/T CAUSING DROWSINESS-GAVE MORPHINE 5MG ORAL- PT TOLERATED WELL AND WAS ABLE TO REST, REPEATED THE MORPHINE DOSE, PER SON AT BEDSIDE - PT IS MORE RELAXED AND COMFORTABLE AND BREATHING EASIER SINCE THE MOPHINE DOSES- PT ABLE TO TAKE SCHEDULED MEDICATIONS WHOLE WITH APPLE SAUCE WITHOUT PROBLEMS - PT REPOSITIONED, CATH CARE DONE, ORAL CARE DONE T/O NIGHT - MEDICATED WITH ATROPINE T/O NIGHT D/T INCREASED SECRETIONS- BED LOW POSITION, CALL LIGHT WITHIN REACH- SON SLEEPING AT BEDSIDE
[2023-03-02] MEDS ORDERED: ACET325 PO (10:27)
[2023-03-02] MEDS ORDERED: ATROPINE SULFATE2 M1 SL (10:28)
[2023-03-02] MEDS ORDERED: TRANSDERM-SCOP1 EA13 TD (10:29)
[2023-03-02] MEDS ORDERED: Ativan1 MG PO (10:29)
[2023-03-02] MEDS ORDERED: MORP20L SL (10:29)
--- NOTE | 2023-03-02 11:45 | NUR ---
Spiritual care visit conducted. Patient is lying in bed and minimally responsive. Many family members are bedside and tearful. I facilitate a brief life review and meet several of the family. I provide therapeutic listening, anticipatory grief support, gentle university counselor and prayer. The family responded well and voiced great appreciation for the visit. I will continue to remain available.
--- NOTE | 2023-03-02 14:35 | NUR ---
Comfort Care Visit Pt resting in bed with her eyes closed and is non responsive. Moderate secretions noted. Pt appears comfortable with no S/S of distress at this time. Pt's grandchildren at bedside. Offered therapeutic listening and answered questions. Encouraged family to speak with Pt and offer re-assurance. Educated on actively dying stage with possible S/S Pt may experience. Family expresses appreciation and reports no other concerns at this time. Pt appears imminent. Spoke with Primary RN Alysha and discussed case. Palliative Care will remain available.
--- NOTE | 2023-03-02 15:53 | NUR ---
PATIENT WITH FAMILY AT BEDSIDE AT 1540, VERIFIED BY AUSCULTATION BY [address] ANGELLA DOWNS. PASTORAL CARE AND PALLIATIVE CARE NURSE NOTIFIED.
--- NOTE | 2023-03-02 16:02 | NUR ---
Pt . Offered supportive visit and condolences to family. Family appears to be grieving appropriately. Family expresses appreciation and report no concerns at this time. Palliative Care will remain available
--- NOTE | 2023-03-02 16:35 | NUR ---
Spiritual care visit conducted. I am contacted shortly after patient's demise at 1540. Family is grieving appropriately and speaking of the freedom from pain and suffering the patient is now enjoying. I commend the family on their attentiveness, kindness towrds each other and the environment of love and peace they provided for the patient. I supply a pryaer and assist with home selections. Nathan, the patient's son selects [facility]. I provide a calming presence and help navigate the next steps for the family. They voice much gratitude for spiritual care and showed signs of being comforted.
== END 2023-03-02 15:40 | DRG 871 ==
LOC: ER 17:34 → ERHOLD 20:34 → PCU 20:34 → MEDS 20:34 → PCU 02-22 08:58 → MEDS 02-23 11:31
PROVIDERS: Emergency Medicine; Internal Medicine; ADMIT Internal Medicine
PROC: 3E03329 Introduction of Other Anti-infective into Peripheral Vein, Percutaneous Approach (ICD-10-PCS; principal; 2023-02-22)
PROC: 5A09357 Assistance with Respiratory Ventilation, Less than 24 Consecutive Hours, Continuous Positive Airway Pressure (ICD-10-PCS; 2023-02-22)
DX: A41.9 Sepsis, unspecified organism (principal); J18.9 Pneumonia, unspecified organism; Z66 Do not resuscitate; Z51.5 Encounter for palliative care; J96.21 Acute and chronic respiratory failure with hypoxia; J96.22 Acute and chronic respiratory failure with hypercapnia; Q39.4 Esophageal web; I13.0 Hypertensive heart and chronic kidney disease with heart failure and stage 1 through stage 4 chronic kidney disease, or unspecified chronic kidney disease; N17.9 Acute kidney failure, unspecified; I50.32 Chronic diastolic (congestive) heart failure; J44.0 Chronic obstructive pulmonary disease with (acute) lower respiratory infection; J44.1 Chronic obstructive pulmonary disease with (acute) exacerbation; Q87.89 Other specified congenital malformation syndromes, not elsewhere classified; E87.20 Acidosis, unspecified; I48.0 Paroxysmal atrial fibrillation; N18.30 Chronic kidney disease, stage 3 unspecified; E87.5 Hyperkalemia; K21.9 Gastro-esophageal reflux disease without esophagitis; E03.9 Hypothyroidism, unspecified; G25.81 Restless legs syndrome; M54.9 Dorsalgia, unspecified; G89.29 Other chronic pain; R65.20 Severe sepsis without septic shock; Z90.49 Acquired absence of other specified parts of digestive tract; Z90.710 Acquired absence of both cervix and uterus; Z98.890 Other specified postprocedural states; Z79.2 Long term (current) use of antibiotics; Z88.8 Allergy status to other drugs, medicaments and biological substances; Z88.5 Allergy status to narcotic agent; Z79.899 Other long term (current) drug therapy; Z79.890 Hormone replacement therapy; Z79.02 Long term (current) use of antithrombotics/antiplatelets; Z11.52 Encounter for screening for COVID-19; Z87.891 Personal history of nicotine dependence; Z99.81 Dependence on supplemental oxygen; Z79.01 Long term (current) use of anticoagulants
CPT/HCPCS: 0202U; 0241U; 36415; 71045; 76770; 78452; 80048; 80053; 82570; 82803; 82947; 83605; 83880; 84145; 84300; 84484; 84540; 85025; 86003; 87040; 92526; 92610; 93005; 93010; 93017; 94640; 94644; 94660; 94664; 94760; 94762; 96365; 96367; 96375; 96376; 97110-CQ; 97161; 97530; 99285-25; A9270; A9500; C9113; J0280; J0456; J0696; J1940; J2785; J2930; J7050; J7512